=== PATIENT | male | born 1980 | race African-American/Black ===

== ENCOUNTER 2019-06-04 23:54 | Emergency (ER) | payer OTHER ==
[2019-06-05] MEDS ORDERED: NS 0.9% 1000 ML** 2,000 ML IV ONE (00:12)
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
[2019-06-05 00:36] LABS: ABS Basophils 0.1 10^3/ul (0-0.2); ABS Eosinophils 0.1 10^3/ul (0-0.6); ABS Lymphocytes 3.9 10^3/ul (1.0-4.8); ABS Monocytes 0.5 10^3/ul (0-0.8); ABS Neutrophils 3.5 10^3/ul (1.5-7.7); Eosinophil % 1.4 %; Hematocrit 41 % (42-52); Hemoglobin 13.6 g/dL (14.0-18.0); Lymphocyte % 48.3 %; Mean Corpuscular HGB Conc 33 g/dL (31-36); Mean Corpuscular Hemoglobin 30 pg (27-31); Mean Corpuscular Volume 92 fL (80-94); Nucleated Red Blood Cells % 0.2; Platelet Count 170 10^3/uL (150-450); Red Blood Count 4.48 10^6 /uL (4.18-5.48); Red Cell Distribution Width 14 % (10-15)
[2019-06-05 00:51] LABS: Albumin 3.9 g/dL (3.2-5.2); Albumin/Globulin Ratio 1.3 (1-3); EGFR African American 86.5 (>60); EGFR Non-African American 71.5 (>60); Globulin 2.9 g/dL (2-4); Potassium 3.4 mmol/L (3.5-5.0); Total Bilirubin 0.7 mg/dL (0.2-1.0); Total Protein 6.8 g/dL (6.4-8.9)
[2019-06-05] MEDS ORDERED: Iohexol 300* (CONTRAST) 10 ML SDV IV ONE (00:58)
[2019-06-05] MEDS ORDERED: oxyCODONE/Acetamin 5/325 MG* TAB PO ONE (03:04)
[2019-06-05] MEDS ORDERED: Lidocaine 2% EPI 1:200000 MPF* 10 ML VIAL INJ ONE (03:12)
[2019-06-05 03:37] VITALS: BP 123/73
[2019-06-05] MEDS ORDERED: Lidocaine 2% w/ EPI 1:200,000* 20 ML SDV VIAL INJ ONE (04:00)
== END 2019-06-05 03:37 | disposition home or self-care (01) ==
LOC: ED 23:54
DX: S31.010A Laceration without foreign body of lower back and pelvis without penetration into retroperitoneum, initial encounter (principal); X99.9XXA Assault by unspecified sharp object, initial encounter; Y92.9 Unspecified place or not applicable; F17.210 Nicotine dependence, cigarettes, uncomplicated; Z88.0 Allergy status to penicillin; N28.1 Cyst of kidney, acquired
CPT/HCPCS: 12001; 36415; 74177; 80053; 85025; 86850; 86900; 86901; 99283; A9270-GY; Q9967